=== PATIENT | male | born 1960 | race Caucasian/White ===

== ENCOUNTER 2024-01-22 09:13 | Emergency (ER) | payer OTHER ==
[~2024-01-22] VITALS: Ht 177.8 cm; Wt 64.0 kg
[2024-01-22] MEDS ORDERED: CYCL5TAB PO (11:37)
[2024-01-22] MEDS ORDERED: IBUP-1955 PO (11:37)
[2024-01-22 12:04] VITALS: BP 130/78; TEMP 98.3; O2SAT 100
== END 2024-01-22 12:06 | disposition home or self-care (01) ==
LOC: ER 09:20
DX: S16.1XXA Strain of muscle, fascia and tendon at neck level, initial encounter (principal); S20.211A Contusion of right front wall of thorax, initial encounter; M25.511 Pain in right shoulder; I10 Essential (primary) hypertension; F41.9 Anxiety disorder, unspecified; Z60.2 Problems related to living alone; W01.0XXA Fall on same level from slipping, tripping and stumbling without subsequent striking against object, initial encounter; Y93.89 Activity, other specified; Y92.89 Other specified places as the place of occurrence of the external cause; Y99.8 Other external cause status
CPT/HCPCS: 70450-TC; 71100-TC; 72125-TC; 73030-TC

== ENCOUNTER 2024-03-26 10:37 | Emergency (ER) | payer OTHER ==
[~2024-03-26] VITALS: Ht 177.8 cm; Wt 57.2 kg
[~2024-03-26 10:37] MED LIST: CYCL5TAB PO; IBUP-1955 PO
[2024-03-26] MEDS: IV NS 0.9% 500 ML BAG IV ONE (11:12)
[2024-03-26 11:16] LABS: BASOPHILS % (AUTO) 0.4 % (0.0-2.0); EOSINOPHILS # (AUTO) 0.1 K/uL (0.0-0.7); EOSINOPHILS % (AUTO) 2.8 % (0.0-6.0); HEMATOCRIT 36 % (39-51); HEMOGLOBIN 11.6 g/dL (13.5-17.5); LYMPHOCYTES % (AUTO) 44.6 % (20.0-44.0); MEAN CORPUSCULAR HEMOGLOBIN 22 PG (26.0-33.0); MEAN CORPUSCULAR HGB CONC 32 g/dl (31.0-36.0); MEAN CORPUSCULAR VOLUME 69 fL (80-96); MONOCYTES # (AUTO) 0.5 K/uL (0.1-1.30); MONOCYTES % (AUTO) 11.6 % (2.0-12.0); NEUTROPHILS # (AUTO) 1.8 K/uL (1.8-8.9); NEUTROPHILS % (AUTO) 40.6 % (43.0-81.0); PLATELET COUNT (AUTO) 251 K/uL (150-450); RED BLOOD CELL COUNT(AUTO) 5.26 MIL/uL (4.5-6.0); RED CELL DISTRIBUTION WIDTH 15.1 % (11.5-15.0); WHITE BLOOD COUNT (AUTO) 4.4 K/uL (4.3-11.0)
[2024-03-26 11:24] LABS: CALCIUM, SERUM 9.8 mg/dL (8.5-10.1); CARBON DIOXIDE 26 mmol/L (21-32); CHLORIDE 108 mmol/L (98-107); CREATININE 0.8 mg/dL (0.6-1.3); GLUCOSE 119 mg/dL (74-106); POTASSIUM 3.5 mmol/L (3.5-5.1); SODIUM SERUM 140 mmol/L (136-145); UREA NITROGEN, BLOOD 18 mg/dL (7-18)
[2024-03-26 11:56] LABS: MAGNESIUM 1.5 mg/dL (1.8-2.4); PHOSPHORUS 4.1 mg/dL (2.5-4.9)
[2024-03-26 12:06] LABS: THYROID STIMULATING HORMONE < 0.007 uIU/mL (0.358-3.74)
[2024-03-26] MEDS ORDERED: METH10TA80 PO (14:16)
[2024-03-26 14:26] VITALS: BP 120/70; TEMP 98.3; O2SAT 98
== END 2024-03-26 14:26 | disposition home or self-care (01) ==
LOC: ER 10:48
DX: E05.90 Thyrotoxicosis, unspecified without thyrotoxic crisis or storm (principal); I10 Essential (primary) hypertension; F19.10 Other psychoactive substance abuse, uncomplicated; R63.4 Abnormal weight loss; Z60.2 Problems related to living alone; Z68.1 Body mass index [BMI] 19.9 or less, adult
CPT/HCPCS: 36415; 71045-TC; 80048-TC; 82330; 83735-TC; 84100-TC; 84439-TC; 84443-TC; 84484-TC; 85025-TC

== ENCOUNTER 2025-03-28 08:02 | Emergency (ER) | payer OTHER ==
[~2025-03-28] VITALS: Ht 180.3 cm; Wt 69.4 kg
[~2025-03-28 08:02] MED LIST changes: +METH10TA80 PO
[2025-03-28 08:09] VITALS: BP 131/86; TEMP 98.1; O2SAT 100
[2025-03-28] MEDS ORDERED: KETOROLAC TROMETHAMINE INJ 30 MG/ML VIAL ONE (08:26)
[2025-03-28] MEDS ORDERED: CYCLOBENZAPRINE 10 MG TABLET ONE (08:26)
[2025-03-28] MEDS: KETOROLAC TROMETHAMINE INJ 30 MG/ML VIAL IM ONE (08:30)
[2025-03-28] MEDS: CYCLOBENZAPRINE 10 MG TABLET PO ONE (08:36)
[2025-03-28] MEDS ORDERED: CYCL5TAB PO (09:04)
== END 2025-03-28 09:08 | disposition home or self-care (01) ==
LOC: ER 08:08
DX: M25.511 Pain in right shoulder (principal); I10 Essential (primary) hypertension; F19.10 Other psychoactive substance abuse, uncomplicated; Z60.2 Problems related to living alone
CPT/HCPCS: 99283; 96372; 73030; J1885

== ENCOUNTER 2025-09-02 09:21 | Emergency (ER) | payer OTHER ==
[~2025-09-02] VITALS: Ht 172.7 cm; Wt 72.6 kg
[2025-09-02] MEDS ORDERED: NAPR-1164 PO (10:09)
[2025-09-02] MEDS ORDERED: KETOROLAC TROMETHAMINE 15 MG/ML VIAL ONE (10:24)
[2025-09-02] MEDS: KETOROLAC TROMETHAMINE 15 MG/ML VIAL IM ONE (10:36)
[2025-09-02 10:49] VITALS: BP 130/80; TEMP 98.7; O2SAT 98
[2025-09-02 10:49] LABS: APPEARANCE,URINE CLEAR (CLEAR); BLOOD, URINE NEGATIVE Ery/uL (NEGATIVE); LEUKOCYTE ESTERASE ,URINE NEGATIVE (NEGATIVE); NITRITE, URINE NEGATIVE (NEGATIVE); UGLUCOSE NEGATIVE (NEGATIVE)
[2025-09-02 10:56] LABS: ADD URINE CULTURE NO; SQUAMOUS EPITHELIAL CELL,UR Few /HPF (None Seen)
== END 2025-09-02 10:51 | disposition home or self-care (01) ==
LOC: ER 09:33
DX: M54.50 Low back pain, unspecified (principal); I10 Essential (primary) hypertension; Z60.2 Problems related to living alone
CPT/HCPCS: 99283; 96372; 81001; J1885